=== PATIENT | female | born 1970 | race Caucasian/White ===

== ENCOUNTER → 2019-01-06 | Outpatient (CLI) | payer MEDICAID, SELFPAY | PROVIDERS: Family Provider Family Medicine; Visit Provider Internal Medicine | DX: R18.8 Other ascites (principal) | CPT/HCPCS: 36415 ×2; 49082; 76705; 80500; 82042; 82105; 82150; 82465; 82570; 82945; 83615; 83986; 84075; 84315; 84560; 87070; 87075 ×2; 87102; 87116; 87205 ×2; 87206 ×2; 87522; 89050 ==